=== PATIENT | female | born 1980 | race Caucasian/White ===

== ENCOUNTER 2021-09-18 20:17 | Emergency (ER) | payer OTHER ==
[2021-09-18] MEDS ORDERED: NORCO 5-325 TA1 EACH PO (22:46)
[2021-09-18] MEDS ORDERED: NAPROXEN500 MG PO (22:46)
[2021-09-18] MEDS ORDERED: BACTRIM DS TAB1 EACH PO (22:46)
== END 2021-09-18 23:23 | disposition home or self-care (01) ==
LOC: FER 20:17
DX: S61.412A Laceration without foreign body of left hand, initial encounter (principal); M79.645 Pain in left finger(s); I10 Essential (primary) hypertension; Z23 Encounter for immunization; W26.0XXA Contact with knife, initial encounter; Y93.89 Activity, other specified; Y92.009 Unspecified place in unspecified non-institutional (private) residence as the place of occurrence of the external cause
CPT/HCPCS: 73120; 90471; 90715